=== PATIENT | female | born 1960 | race Caucasian/White ===

== ENCOUNTER 2022-10-12 10:54 | Outpatient (RCR) | payer BC, SELFPAY ==
--- NOTE | 2022-10-12 12:05 | PTOPEVAL1 ---
Assessment and note entered by Be Harmon, PT Evaluation Information Assessment Status Evaluation Diagnosis Tear of R Acetabulum labrum, R hip pain Onset 12/03/21 Subjective Information States that she has been having trouble for almost a year now. She has most issues with getting out of bed and doing anything that involves lifting her leg. Walking long distances and lifting her leg out of bed cause her the most pain. She has a lot of pain as well when first getting out of bed in the AM. She has taken a break from yoga as she believe that it may have triggered this issues. Pain is in back of leg and glute as well as groin. Does not radiate past knee. She is scheduled for an injection next week. Reported Pain Level Pain Score 4: Self Report Assessment PT Clinical Summary Patient presents with signs and symptoms consistent with labral instability. She is showing deficits in gait, transfers, and gross glute strength. She will benefit from skilled therapy to address these deficits to restore gait cycle and ADLs with reduced or eliminated pain. Aquatic therapy is an option but will need to be coordinated as she has possible Lupus dermal issues. Plan of Care Interventions Aquatic Therapy,Hot Pack/Cold Pack,Manual Therapy, Neuro Re-education,Therapeutic Activities, Therapeutic Exercise PT Services Indicated Yes Treatment Frequency and 2x/week for 4 weeks Duration These treatments will address the objective and functional deficits as defined above. The patient will be advanced safely and appropriately in order for the patient to progress towards his/her prior level of function. Additional exercises will be introduced and as well as a comprehensive home exercise program upon discharge, if needed, ?to ensure carryover of functional gains achieved in the clinic. This treatment plan has been reviewed and agreement upon by the patient.
--- NOTE | 2022-10-12 12:06 | OPREHPOC ---
Outpatient Therapy Plan of Care This is a Multidisciplinary Plan of Care that may contain components documented by all disciplines (PT, OT, and ST.) PT Problem 1 PT Problem #1 Knowledge Deficit PT Goal 1 Goal Independent with home hip stability exercises Target Visit 4 PT Problem 2 PT Problem #2 Pain PT Goal 1 Goal Report 0/10 pain with leg lift out of bed activity Target Visit 4 PT Problem 3 PT Problem #3 Impaired Strength PT Goal 1 Goal Improve krystyna hip abduction strength to 4/5 krystyna to improve hip and pelvic stability PT Goal 2 Goal Improve krystyna hip flexion strength to 4+/5 to improve foot clearance and anterior hip stability Target Visit 8 PT Problem 4 PT Problem #4 Impaired Gait PT Goal 1 Goal Ambulate with even stride length bilaterally Target Visit 8 PT Problem 5 PT Problem #5 Impaired Range of Motion PT Goal 1 Goal Demonstrate 15 degrees of krystyna hip extension to assist with terminal gait Target Visit 8
--- NOTE | 2022-12-18 07:50 | PTOPDC ---
Assessment and note entered by Be Harmon, PT Discharge Information Assessment Status Discharge - Pt Not Present Diagnosis Tear of R Acetabulum labrum, R hip pain Onset 12/03/21 Subjective Information States that she has been having trouble for almost a year now. She has most issues with getting out of bed and doing anything that involves lifting her leg. Walking long distances and lifting her leg out of bed cause her the most pain. She has a lot of pain as well when first getting out of bed in the AM. She has taken a break from yoga as she believe that it may have triggered this issues. Pain is in back of leg and glute as well as groin. Does not radiate past knee. She is scheduled for an injection next week. Assessment PT Clinical Summary Patient contacted clinic stating that she had a Lupus flair up with dermal issues and would not be able to attend therapy at this time. She reports that she will not be able to do exercise or aquatics as planned at this time. Requested discharge. Plan of Care PT Services Indicated Yes
== END 2022-12-18 14:04 | disposition home or self-care (01) ==
LOC: ANHPT 10:54
DX: S73.191A Other sprain of right hip, initial encounter (principal)
CPT/HCPCS: 97110; 97161